=== PATIENT | female | born 1985 | race African-American/Black ===

== ENCOUNTER 2024-02-25 11:48 | Inpatient (IN) | payer MEDICAID, OTHER ==
[2024-02-25] VITALS (8 sets, daily range): BP systolic 103–115; BP diastolic 52–55; PULSE 65–77; RESP 13–20; TEMP 98.1–98.7; O2SAT 0–100
[~2024-02-25] VITALS: Ht 167.6 cm; Wt 61.6 kg
[2024-02-25 14:24] LABS: Eosinophils # (auto) 0 10 ^3/uL (0-0.8); Mean Corpuscular Hgb Conc. 26.5 g/dL (32.0-36.0); Monocytes # (auto) 0.4 10 ^3/uL (0-1.3); Neutrophils # (auto) 3.9 10 ^3/uL (1.6-8.6); White Blood Cell 7.5 10^3/uL (4.4-10.8)
[2024-02-25 14:26] LABS: Basophils # (auto) 0 10 ^3/uL (0-0.2); Basophils % (auto) 0.6 % (0.0-2.0); Eosinophils % (auto) 0.3 % (0.0-7.0); Lymphocytes # (auto) 3.1 10 ^3/uL (0.4-5.4); Lymphocytes % (auto) 41.7 % (10.0-50.0); Mean Corpuscular Volume 56.4 fL (80.0-100.0); Monocytes % (auto) 5.3 % (0.0-12.0); Neutrophils % (auto) 52.1 % (37.0-80.0); Nucleated Red Blood Cells % 0.2 %; Red Blood Cells 3.73 10^6/uL (4.0-5.20)
[2024-02-25 14:48] LABS: Albumin 4.4 g/dL (3.2-4.8); Alkaline Phosphatase 55 U/L (46-116); Anion Gap 9 (5-15); Aspartate Aminotransferase < 8 U/L (13-40); BUN/Creatinine Ratio 14.9 (10.0-20.0); Bilirubin, Total 1.1 mg/dL (0.2-1.0); Blood Urea Nitrogen 10 mg/dL (9-23); Calcium 9.8 mg/dL (8.7-10.4); Carbon Dioxide 22 mmol/L (20-30); Chloride 107 mmol/L (98-107); Glucose 83 mg/dL (74-106); Potassium 3.7 mmol/L (3.5-5.1); Sodium 138 mmol/L (136-145); Total Protein 7.4 g/dL (5.7-8.2)
[2024-02-25 14:54] LABS: Alanine Aminotransferase < 9 U/L (7-40)
[2024-02-25 14:58] LABS: Red Cell Distribution Width 28.5 % (11.8-14.3)
[2024-02-25 14:59] LABS: Hemoglobin 5.6 g/dL (12.2-16.2)
[2024-02-25 16:27] LABS: Anisocytosis Moderate; Hypochromia Marked; Ovalocytes FEW; Platelet Estimate Markedly Increased
[2024-02-25 16:28] LABS: Tear Drop Cells FEW
[2024-02-25 16:37] LABS: INR 1.13 (0.9-1.15); Partial Thromboplastin Time 27.2 SEC (24.5-34.5); Prothrombin Time 11.9 sec (9.3-11.8)
[2024-02-25] MEDS ORDERED: HYDROcodone-ACET 5/325MG TAB PO PRN (17:30)
[2024-02-25] MEDS ORDERED: ONDANSETRON HCL 4 MG/2 ML VIAL IV PRN (17:30)
[2024-02-25] MEDS ORDERED: MORPHINE SULFATE INJ 2 MG/ml SYRG IV PRN (17:30)
[2024-02-25] MEDS ORDERED: DOCUSATE SOD 100 MG CAP PO PRN (17:30)
[2024-02-25] MEDS ORDERED: ACETAMINOPHEN 325 MG TAB PO PRN (17:30)
[2024-02-25] MEDS ORDERED: LORazepam 2MG/ML-1ML VIAL IV PRN (17:45)
[2024-02-25 19:20] LABS: % Iron Saturation 1.9 % (15-50)
[2024-02-26] VITALS (10 sets, daily range): BP systolic 96–117; BP diastolic 49–64; PULSE 57–79; RESP 14–20; TEMP 97.8–98.5; O2SAT 99–100
[2024-02-26] MEDS: PANTOPRAZOLE 40 MG TAB PO SCH (06:35)
[2024-02-26 15:14] LABS: Basophils # (auto) 0.1 10 ^3/uL (0-0.2); Basophils % (auto) 0.9 % (0.0-2.0); Eosinophils # (auto) 0.1 10 ^3/uL (0-0.8); Eosinophils % (auto) 0.7 % (0.0-7.0); Hematocrit 28.4 % (36.0-46.0); Hemoglobin 8.3 g/dL (12.2-16.2); Lymphocytes # (auto) 2.7 10 ^3/uL (0.4-5.4); Lymphocytes % (auto) 34.7 % (10.0-50.0); Mean Corpuscular Hgb Conc. 29.1 g/dL (32.0-36.0); Mean Corpuscular Volume 65.1 fL (80.0-100.0); Monocytes # (auto) 0.4 10 ^3/uL (0-1.3); Monocytes % (auto) 5.4 % (0.0-12.0); Neutrophils # (auto) 4.6 10 ^3/uL (1.6-8.6); Neutrophils % (auto) 58.3 % (37.0-80.0); Nucleated Red Blood Cells % 0.1 %; Red Blood Cells 4.37 10^6/uL (4.0-5.20); White Blood Cell 7.9 10^3/uL (4.4-10.8)
[2024-02-26] MEDS: IRON SUCROSE COMPLEX 100 ML IV SCH (15:26)
[2024-02-26 15:49] LABS: Albumin 4.2 g/dL (3.2-4.8); Alkaline Phosphatase 54 U/L (46-116); Anion Gap 9 (5-15); Aspartate Aminotransferase < 8 U/L (13-40); BUN/Creatinine Ratio 10.8 (10.0-20.0); Bilirubin, Total 2.4 mg/dL (0.2-1.0); Blood Urea Nitrogen 7 mg/dL (9-23); Calcium 9.1 mg/dL (8.5-10.1); Carbon Dioxide 21 mmol/L (20-30); Chloride 109 mmol/L (98-107); Glucose 70 mg/dL (74-106); Potassium 3.7 mmol/L (3.5-5.1); Sodium 139 mmol/L (136-145); Total Protein 6.5 g/dL (5.7-8.2)
[2024-02-26 15:50] LABS: Alanine Aminotransferase < 9 U/L (7-40)
[2024-02-27 01:11] VITALS: BP 101/54; PULSE 64; RESP 18; TEMP 98; O2SAT 100
[2024-02-27 05:43] VITALS: BP 105/61; PULSE 63; RESP 17; TEMP 98.3; O2SAT 100
[2024-02-27 06:14] LABS: White Blood Cell 9.1 10^3/uL (4.4-10.8)
[2024-02-27 06:19] LABS: Hematocrit 26.6 % (36.0-46.0); Hemoglobin 7.6 g/dL (12.2-16.2); Mean Corpuscular Hemoglobin 18.8 pg (28.0-32.0); Mean Corpuscular Hgb Conc. 28.7 g/dL (32.0-36.0); Mean Corpuscular Volume 65.4 fL (80.0-100.0); Red Blood Cells 4.07 10^6/uL (4.0-5.20)
[2024-02-27 06:24] LABS: Anion Gap 7 (5-15); Calcium 8.9 mg/dL (8.5-10.1); Carbon Dioxide 21 mmol/L (20-30); Chloride 109 mmol/L (98-107); Potassium 3.6 mmol/L (3.5-5.1); Sodium 137 mmol/L (136-145)
[2024-02-27 06:29] LABS: Band Neutrophils % (manual) 0; Basophils % (manual) 0 (0.0-2.0); Blast Cells 0; Eosinophils % (manual) 0 (0-7); Metamyelocytes % 0; Myelocytes % 0; Promyelocytes % 0; Reactive Lymphocytes 0
[2024-02-27 06:30] LABS: BUN/Creatinine Ratio 11.7 (10.0-20.0); Blood Urea Nitrogen 7 mg/dL (9-23); Glucose 83 mg/dL (74-106)
[2024-02-27 07:52] LABS: Eosinophils % (auto) 1.2 % (0.0-7.0); Neutrophils % (auto) 53.7 % (37.0-80.0)
[2024-02-27 07:53] LABS: Basophils # (auto) 0.1 10 ^3/uL (0-0.2); Basophils % (auto) 1.1 % (0.0-2.0); Eosinophils # (auto) 0.1 10 ^3/uL (0-0.8); Lymphocytes # (auto) 3.5 10 ^3/uL (0.4-5.4); Monocytes # (auto) 0.5 10 ^3/uL (0-1.3); Neutrophils # (auto) 4.9 10 ^3/uL (1.6-8.6)
[2024-02-27 08:00] VITALS: PULSE 63; RESP 17; O2SAT 100
[2024-02-27 08:01] LABS: Lymphocytes % (manual) 28 (10.0-50.0); Monocytes % (manual) 9 (0-12)
[2024-02-27 08:03] LABS: Anisocytosis Moderate; Platelet Estimate Markedly Increased
[2024-02-27 08:04] LABS: Hypochromia Moderate; Ovalocytes FEW
[2024-02-27 08:05] LABS: Nucleated Red Blood Cells % 0.2 %
[2024-02-27 08:08] LABS: Haptoglobin 141 mg/dL (33-278)
[2024-02-27 12:29] VITALS: BP 93/47; PULSE 67; RESP 18; TEMP 98.4; O2SAT 100
[2024-02-27] MEDS ORDERED: FER325T PO (13:34)
[2024-02-27 14:24] VITALS: BP 93/47; PULSE 67; RESP 18; TEMP 98.4; O2SAT 100
== END 2024-02-27 15:10 | disposition home or self-care (01) | DRG 663 ==
LOC: ER 11:48 → OVERFLOW 17:32 → WEST WING 17:32
PROVIDERS: ADMIT Nurse Practitioner Family; ATTEND Internal Medicine
PROC: 30233N1 Transfusion of Nonautologous Red Blood Cells into Peripheral Vein, Percutaneous Approach (ICD-10-PCS; principal; 2024-02-25)
DX: D50.0 Iron deficiency anemia secondary to blood loss (chronic) (principal); D25.9 Leiomyoma of uterus, unspecified; D75.839 Thrombocytosis, unspecified; F20.9 Schizophrenia, unspecified; F31.9 Bipolar disorder, unspecified; N92.0 Excessive and frequent menstruation with regular cycle; Z79.899 Other long term (current) drug therapy
CPT/HCPCS: 36415; 36430; 70450; 71045; 76856; 80048; 80053; 82728; 83010; 83540; 83550; 83615; 83735; 84702; 85007; 85025; 85027; 85610; 85730; 86850; 86900; 86901; 86920; G0378; J1756